=== PATIENT | female | born 1990 ===

== ENCOUNTER 2018-05-08 19:02 | Emergency (ER) | payer MEDICAID ==
[2018-05-08 19:02] VITALS: BMI 32.5
[2018-05-08 19:43] VITALS: BP 117/79; PULSE 68; RESP 16; TEMP 98.4; O2SAT 98
--- NOTE | 2018-05-08 21:44 | ED PDOC ---
Lower Extremity Pain/Injury Time Seen by Provider: 05/08/18 20:50 Chief Complaint (Nursing): Lower Extremity Problem/Injury Chief Complaint (Provider): Lower Extremity Problem/Injury History Per: Patient History/Exam Limitations: no limitations Current Symptoms Are (Timing): Still Present Additional Complaint(s): 28 y/o female with a history of chronic left foot pain presents to the ED with left foot pain onset for 4 weeks. Patient reports pain has been present since bunion surgery performed six years ago by staff provider who she does not remember. Patient's pain has become worse in the last 4 weeks. Yesterday, patient was seen at [facility] where she had X-rays done which came back negative. Otherwise, patient denies new injury and trauma. PMD: non provided Past Medical History Reviewed: Historical Data, Nursing Documentation, Vital Signs Vital Signs: Last Vital Signs Temp 98.4 F 05/08/18 19:40 Pulse 68 05/08/18 19:40 Resp 16 05/08/18 19:40 BP 117/79 05/08/18 19:40 Pulse Ox 98 05/08/18 19:40 - Medical History PMH: Asthma, Bipolar Disorder - Surgical History Surgical History: No Surg Hx - Family History Family History: States: Unknown Family Hx - Immunization History Hx Tetanus Toxoid Vaccination: No Hx Influenza Vaccination: No Hx Pneumococcal Vaccination: No - Home Medications Home Medications: Ambulatory Orders Medication Instructions Recorded traMADol [Ultram] 50 mg PO QID PRN #20 tab 01/05/14 Ibuprofen [Motrin] 600 mg PO TID 7 Days tab 03/01/18 Ibuprofen [Motrin Tab] 600 mg PO TID #15 tab 05/08/18 - Allergies Allergies/Adverse Reactions: Allergies Allergy/AdvReac Type Severity Reaction Status Date / Time No Known Allergies Allergy Verified 05/08/18 19:40 Physical Exam - Reviewed Nursing Documentation Reviewed: Yes Vital Signs Reviewed: Yes - Physical Exam Appears: Positive for: Well, No Acute Distress Head Exam: Positive for: ATRAUMATIC, NORMAL INSPECTION, NORMOCEPHALIC Skin: Positive for: Normal Color, Warm, Dry Eye Exam: Positive for: Normal appearance, EOMI, PERRL Cardiovascular/Chest: Positive for: Regular Rate, Rhythm. Negative for: Murmur Respiratory: Positive for: Normal Breath Sounds. Negative for: Wheezing, Respiratory Distress Extremity: Positive for: Tenderness (mild tenderness b/l dorsal foot). Negative for: Swelling, Other (ecchymosis) Neurologic/Psych: Positive for: Alert, Oriented (x3) - ECG O2 Sat by Pulse Oximetry: 98 (RA) Pulse Ox Interpretation: Normal Medical Decision Making Medical Decision Making: Time: 21:05 Patient is ambulating well in the ED without assistance. She requires no further treatment and will be discharged with Motrin. Scribe Attestation: Documented by Trish Cadena , acting as a scribe for Radha Barlow. Provider Scribe Attestation: All medical record entries made by the Scribe were at my direction and personally dictated by me. I have reviewed the chart and agree that the record accurately reflects my personal performance of the history, physical exam, medical decision making, and the department course for this patient. I have also personally directed, reviewed, and agree with the discharge instructions and disposition. Disposition - Clinical Impression Clinical Impression: Foot pain, left - Patient ED Disposition Is Patient to be Admitted: No - Disposition Disposition: Routine/Home Disposition Time: 21:05 Condition: STABLE Prescriptions: Ibuprofen [Motrin Tab] 600 mg PO TID #15 tab Instructions: Metatarsalgia (DC) Forms: Tastemaker (Kiswahili)
== END 2018-05-08 21:17 | disposition home or self-care (01) ==
LOC: H.ER 19:02
DX: M79.672 Pain in left foot (principal)